=== PATIENT | female | born 1970 | race Caucasian/White ===

== ENCOUNTER 2017-08-13 20:45 | Emergency (ER) | payer SELFPAY ==
[~2017-08-13] VITALS: Ht 167.6 cm; Wt 95.5 kg
[2017-08-13 20:48] VITALS: BP 174/89; PULSE 83; RESP 18; TEMP 99.6; O2SAT 98
--- NOTE | 2017-08-13 21:12 | PD ---
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 47-year-old female here for evaluation of nonproductive cough, generalized malaise, sore throat for 2 weeks. She has had subjective fevers. She has felt nauseous but has not vomited. No diarrhea. Occasionally has s some abdominal pain that is left-sided when she coughs. She also has some burning sensation in the left side of her chest which has been constant, worse with coughing. No hemoptysis. No sick contacts. PFSH Past Medical History Medical History: Denies Significant Hx Diminished Hearing: No Immunizations Current: Yes Tetanus Vaccination: < 5 Years Influenza Vaccination: No ?: Unknown : 2 Para: 2 Past Surgical History Hysterectomy: Yes Other Surgery: Yes Social History Alcohol Use: No Tobacco Use: No Allergies-Medications (Allergen,Severity, Reaction): Coded Allergies: No Known Allergies (Unverified , 08/13/17) Reported Meds & Prescriptions Reported Meds & Active Scripts Active No Active Prescriptions or Reported Medications Physical Exam Narrative GENERAL: Well-developed, well-nourished, comfortable, no apparent distress. SKIN: Focused skin assessment warm/dry. HEAD: Atraumatic. Normocephalic. EYES: Pupils equal and round. No scleral icterus. No injection or drainage. ENT: No nasal bleeding or discharge. Mucous membranes pink and moist. Pharynx with mild erythema without exudates. Uvula midline. No drooling or stridor. Normal phonation. NECK: Trachea midline. No JVD. CARDIOVASCULAR: Regular rate and rhythm. RESPIRATORY: No accessory muscle use. Clear to auscultation. Breath sounds equal bilaterally. GASTROINTESTINAL: Abdomen soft, non-tender, nondistended. MUSCULOSKELETAL: No obvious deformities. No clubbing. No cyanosis. No edema. NEUROLOGICAL: Awake and alert. No obvious cranial nerve deficits. Motor grossly within normal limits. Normal speech. PSYCHIATRIC: Appropriate mood and affect; insight and judgment normal. Data Data Last Documented VS Vital Signs Date Time Temp Pulse Resp B/P (MAP) Pulse Ox O2 Delivery O2 Flow Rate FiO2 08/13/17 20:48 99.6 83 18 174/89 (117) 98 Orders Orders Ketorolac Inj (Toradol Inj) (08/13/17 21:15) Dexamethasone Inj (Decadron Inj) (08/13/17 21:15) Chest, Single Ap (08/13/17 ) Influenzae A/B Antigen (08/13/17 21:09) Group A Rapid Strep Screen (08/13/17 21:09) Electrocardiogram (08/13/17 ) Amoxicil-Clavulanate (Augmentin) (08/13/17 22:30) MDM Medical Decision Making Medical Screen Exam Complete: Yes Emergency Medical Condition: Yes Differential Diagnosis Viral illness, URI, bronchitis, pneumonia, pharyngitis Narrative Course Vital signs reviewed. Patient has and oral temp of 99.6F Chest x-ray shows no acute disease, normal exam for a patient of this age. Influenza is negative. Group A strep is positive. Patient was provided IM Toradol and IM Decadron, and on reassessment she states she feels significantly improved. Again [place] transitional services were used to make the patient aware of all findings and of plan. She is able to swallow and tolerate her secretions. Normal phonation. No signs clinically of peritonsillar abscess or deep space neck infection. Plan is to start her on Augmentin. She does not have insurance or a primary care physician. I will give her the information to the [facility] to follow-up with this week. She was advised on when to return to the emergency department. She verbalizes understanding and agreement with plan. Diagnosis Primary Impression: Strep pharyngitis Referrals: [facility] Additional Instructions: Take antibiotic as prescribed. Take Tylenol/ibuprofen for pain and fever. Follow-up with a primary care physician this week. Drink plenty of fluids. Return to the emergency department for worsening symptoms or any other concerns. Scripts Amoxicillin-Clavulanate (Augmentin) 875-125 Mg Tab 1 TAB PO BID for Infection for 10 Days, #20 TAB 0 Refills Prov: Malcolm Goldberg MD 08/13/17 Disposition: 01 DISCHARGE HOME Condition: Stable Malcolm Goldberg MD Aug 13, 2017 21:12
[2017-08-13] MEDS ORDERED: KETOROLAC TROMETHAMINE 60 MG/2 ML (IM) VIAL IM ONE (21:15)
[2017-08-13] MEDS ORDERED: DEXAMETHASONE SOD PHOS 4 MG/ML VIAL IM ONE (21:15)
--- NOTE | 2017-08-13 21:51 | RADRPT ---
EXAM DATE/TIME: 08/13/2017 21:11 [place] COMPARISON: No previous studies available for comparison. INDICATIONS : Cough MEDICAL HISTORY : None. SURGICAL HISTORY : None. ENCOUNTER: Initial ACUITY: 1 day PAIN SCORE: 0/10 LOCATION: Bilateral chest FINDINGS: A single view of the chest demonstrates the lungs to be symmetrically aerated without evidence of mas s, infiltrate or effusion. The cardiomediastinal contours are unremarkable. Osseous structures are intact. CONCLUSION: Normal examination for a patient of this age. Alberto Nicholas MD on August 13, 2017 at 21:49 Board Certified Radiologist. This report was verified electronically.
[2017-08-13] MEDS ORDERED: AMOXICILLIN/CLAVULANATE K 875 MG TAB PO ONE (22:30)
[2017-08-13] MEDS ORDERED: AUGM875T3 PO (22:38)
--- NOTE | 2017-08-14 07:52 | EKG ---
Date Performed: 08/13/2017 Time Performed: 23:08:02 PTAGE: 47 years EKG: Sinus rhythm NORMAL ECG NO PREVIOUS TRACING DOCTOR: Salo Duran Interpretating Date/Time 08/14/2017 07:51:11
== END 2017-08-13 23:25 | disposition home or self-care (01) ==
LOC: NEPD 20:45
DX: J02.0 Streptococcal pharyngitis (principal); B95.0 Streptococcus, group A, as the cause of diseases classified elsewhere
CPT/HCPCS: 71045; 87804; 87880; 93005; 96372; 99285; J1100; J1885

== ENCOUNTER 2017-09-22 23:09 | Emergency (ER) | payer SELFPAY ==
[~2017-09-22] VITALS: Ht 167.6 cm; Wt 95.0 kg
[~2017-09-22 23:09] MED LIST: AUGM875T3 PO
[2017-09-22 23:16] VITALS: BP 157/81; PULSE 86; RESP 18; TEMP 98.6; O2SAT 96
[2017-09-22] MEDS ORDERED: RESP: ALBUTEROL 2.5 MG/3 ML NEB (SCH) NEB ONE (23:45)
[2017-09-22 23:51] VITALS: O2SAT 98
--- NOTE | 2017-09-22 23:57 | PD ---
HPI Chief Complaint: Cold / Flu Symptoms Time Seen by Provider: 23:32 Travel History International Travel<30 days: No Contact w/Intl Traveler<30days: No Traveled to known affect area: No History of Present Illness HPI 47yo F with no PMH presents to the ED with c/o persistent cough and feeling like her lungs are not expanding. Pt was just seen at [facility] yesterday and was told she has pneumonia and was place on levaquin. Pt was given antibiotic last night but did not take her antibiotic today. Denies any chest pain, n/v, abdominal pain, focal weakness or numbness. PFSH Past Medical History Diminished Hearing: No Immunizations Current: Yes Pneumonia: Yes Tetanus Vaccination: < 5 Years Influenza Vaccination: No ?: Not : 2 Para: 2 Past Surgical History Cholecystectomy: Yes Hysterectomy: Yes Other Surgery: Yes Social History Alcohol Use: No Tobacco Use: No Substance Use: No Allergies-Medications (Allergen,Severity, Reaction): Coded Allergies: No Known Allergies (Unverified , 09/22/17) Reported Meds & Prescriptions Reported Meds & Active Scripts Active Reported Guaifenesin-Codeine Liq 100-10 Mg/5 Ml Soln 5 Ml PO Q4H PRN Levofloxacin 750 Mg Tablet 750 Mg PO DAILY Review of Systems Except as stated in HPI: all other systems reviewed are Neg Physical Exam Narrative GENERAL: 47yo F in mild distress. SKIN: Focused skin assessment warm/dry. HEAD: Atraumatic. Normocephalic. EYES: Pupils equal and round. No scleral icterus. No injection or drainage. ENT: No nasal bleeding or discharge. Mucous membranes pink and moist. NECK: Trachea midline. No JVD. CARDIOVASCULAR: Regular rate and rhythm. No murmur appreciated. RESPIRATORY: No accessory muscle use. Clear to auscultation. Breath sounds equal bilaterally. GASTROINTESTINAL: Abdomen soft, non-tender, nondistended. Hepatic and splenic margins not palpable. MUSCULOSKELETAL: No obvious deformities. No clubbing. No cyanosis. No edema. NEUROLOGICAL: Awake and alert. No obvious cranial nerve deficits. Motor grossly within normal limits. Normal speech. PSYCHIATRIC: Appropriate mood and affect; insight and judgment normal. Data Data Last Documented VS Vital Signs Date Time Temp Pulse Resp B/P (MAP) Pulse Ox O2 Delivery O2 Flow Rate FiO2 09/22/17 23:51 98 09/22/17 23:16 98.6 86 18 157/81 (106) Orders Orders Chest, Single Ap (09/22/17 ) Albuterol Neb (Albuterol Neb) (09/22/17 23:45) Ed Discharge Order (09/23/17 01:42) [facility] Medical Decision Making Medical Screen Exam Complete: Yes Emergency Medical Condition: Yes Differential Diagnosis Pneumonia vs. bronchitis vs. URI Narrative Course 47yo F with newly diagnosed pneumonia last night here stating she is still coughing. Pt has levaquin with her and did not take today's dose. Instructed her to please take her medication and allow the antibiotics to work. Pt has clear lungs but gave 1 albuterol neb to see if it improves cough. Said she did feel a little better. Pt also has robitussin with codeine from [facility]. CXR showed left upper infiltrate. Said that yesterday, the infiltrate was on the left upper area. Denies any tuberculosis, hemoptysis, recent traveling. Pt is saturating at 98% on RA, tolerating PO, and needs to try outpatient treatment first. Instructed her to return if symptoms do not improve in a few days. Return precautions given. Diagnosis Primary Impression: Pneumonia Qualified Codes: J18.1 - Lobar pneumonia, unspecified organism Patient Instructions: General Instructions Departure Forms: Tests/Procedures Additional Instructions: Please continue to take the antibiotics and cough medications that you have. Return to the ED if symptoms worsen. Med/Other Pt SpecificInfo: Prescription(s) given Scripts Albuterol 18 GM Inh (Ventolin Hfa 18 GM Inh) 90 Mcg/Act Aer 2 PUFF INH Q4H Y for SHORTNESS OF BREATH, #1 INHALER 0 Refills Prov: EugenioYumiko DO 09/23/17 Disposition: 01 DISCHARGE HOME Condition: Stable Yumiko Becker DO Sep 22, 2017 23:57
--- NOTE | 2017-09-23 00:22 | RADRPT ---
EXAM DATE: 09/23/2017 12:11 AM EDT AGE/SEX: 47 years / Female INDICATIONS: Shortness of breath. CLINICAL DATA: This is the patient's initial encounter. Patient reports that signs and symptoms have been present for 1 day and indicates a pain score of 0/10. MEDICAL/SURGICAL HISTORY: None. None. COMPARISON: [facility] [place], CHEST SINGLE AP, 08/13/2017. . FINDINGS: There is airspace disease in the left upper lobe medially and left upper lobe laterally suspicious fo r pneumonia. CONCLUSION: New infiltrate in the left upper lobe probable pneumonia. It is new since July. Electronically signed by: Gold Chaney MD 09/23/2017 12:20 AM EDT
[2017-09-23] MEDS ORDERED: LEVO750T3 PO (01:36)
[2017-09-23] MEDS ORDERED: GUAI100S5 PO (01:36)
[2017-09-23] MEDS ORDERED: VENTAER INH (01:50)
== END 2017-09-23 01:57 | disposition home or self-care (01) ==
LOC: NEPC 23:09
DX: J18.1 Lobar pneumonia, unspecified organism (principal)
CPT/HCPCS: 71045; 94664; 99283; J7613